=== PATIENT | female | born 1965 | race Caucasian/White ===

== ENCOUNTER 2020-08-22 07:38 | Outpatient (CLI) | payer MEDICARE, MEDICAID, SELFPAY ==
--- NOTE | 2020-08-22 06:00 | DI.RAD_ITS ---
EXAM: XR PAIN CLINIC LUMBAR SP 2V CLINICAL HISTORY: Dx:Lumbar Radiculopathy TECHNIQUE: 2D and realtime digital imaging was performed. CONTRAST MATERIAL: None. COMPARISON: No exams were available for comparison FINDINGS: Fluoroscopy was provided for Dr. Simon during the performance of a L5-S1 interlaminar epidural steroid injection. Please refer to the procedure report for complete details. Fluoro time: 55.6 second Cumulative dose: 31.7 mGy IMPRESSION:
[2020-08-22 07:54] VITALS: BP 121/81; PULSE 84; RESP 17; TEMP 36.8; O2SAT 97
[2020-08-22 08:49] VITALS: BP 120/70; PULSE 110; RESP 18; O2SAT 94
--- NOTE | 2020-08-22 08:52 | PDOC.PAIN ---
Pain Clinic Procedure Note Procedure Note Procedure Note: PROCEDURE NOTE CAUDAL EPIDURAL STEROID INJECTION Date of Service: August 22, 2020 Patient: ADRIAN MELENDREZ Provider: Ana Simon DO, MPH ADRIAN MELENDREZ has been referred to the [facility] for caudal epidural steroid injection. Pre-operative diagnosis: Lumbosacral radiculopathy Post-operative diagnosis: Same COMMENTS: She was evaluated in our clinic on 06/11/20 by Ismaellester. She did have an MRI of the lumbar spine on 05/05/20. She does have right L5 compression and symptoms consistent with this finding. She does have a history of an L4-L5 fusion in 2014. She has had LESIs with Dr. Maldonado in the past with good results. Her last LESI was in 05/2019. ADRIAN was interviewed and the medical record was reviewed. There were no medical, pharmacologic, radiographic or other structural contraindications to attempting fluoroscopically guided epidural steroid injection. Risks and expected side effects as well as potential benefit of the procedure were reviewed with Ms MELENDREZ, and her voiced concerns were addressed. The printed consent form was signed and witnessed. Standard time-out procedure was performed. Ms MELENDREZ was placed in the prone position on the fluoroscopy table and automated blood pressure cuff and pulse oximeter applied. The skin entry point for entering/approaching the epidural space by a caudal approach through the sacral hiatus ed identified with surgical skin marking. Following thorough chlorhexidine preparation x 2 of the skin and draping and 1% lidocaine infiltration of the skin entry point and subcutaneous tissues, a 17 gauge Touhy needle was placed under fluoroscopic guidance into the epidural space. Needle tip placement and depth were aided and confirmed by fluoroscopy in the lateral and AP position. There was no paresthesia or return of blood or CSF through the needle. 1 cc of Omnipaque 240 was injected with clear epidural spread confirmed with fluoroscopy. An Arrow 17G radio-opaque epidural catheter was advanced into the epidural space to the L5-S1 and 2 cc of Omnipaque 240 was injected with clear epidural spread. 80 mg of Depomedrol followed by 1 cc of 1% Lidocaine was injected. There was no unusual discomfort expressed by ADRIAN . The needle and catheter were then flushed with 2 cc of 1% Lidocaine and they were removed without difficulty. (48 cc of Omnipaque was wasted) Ms MELENDREZ's vital signs were stable throughout the procedure and were as recorded in the docflowsheet by the nursing staff. If given, dosages of intravenous drugs for anxiolysis and analgesia were documented in MAR. Follow up plans and appointments were discussed with Ms MELENDREZ. Post procedure instruction was given as documented in nursing documentation and having met discharge criteria, she was discharged from the [facility]. COMMENTS: No apparent complications. This procedure can be completed up to 3 times per 12 months if it is found to be helpful.. Follow-up with our office as needed. I personally completed the entire procedure. ANA SIMON DO, MPH Facility Administrator of Anesthesiology/[facility]ly [facility] [employer] [facility] Epitaxial Reactor Operator, Pain Medicine Fellowship at [facility] Mural Painter, Functional Holiness Program at [facility] [employer]BP[employer]R - Subspecialty board certification in Pain Medicine
[2020-08-22] MEDS: methylPREDNISolone ACETATE 80 MG/ML VIAL IJ (08:57)
[2020-08-22] MEDS: Omnipaque 240 MG/ML 50 ML BTL IJ (08:58)
== END 2020-08-22 07:58 ==
PROVIDERS: PCP Internal Medicine; Visit Provider Preventive Medicine Occupational Medicine
DX: M54.17 Radiculopathy, lumbosacral region (principal)
CPT/HCPCS: 62323; 72100; J1040; Q9967

== ENCOUNTER 2020-09-13 11:37 | Outpatient (REF) | payer MEDICARE, MEDICAID, SELFPAY ==
[2020-09-15 11:33] LABS: 2-Hydroxy Ethyl Flurazepam Not Detected ng/mL (Cutoff: 10); 6-monoacetylmorphine Not Detected ng/mL (Cutoff: 25); Alpha-Hydroxy Midazolam Not Detected ng/mL (Cutoff: 10); Alpha-Hydroxy Triazolam Not Detected ng/mL (Cutoff: 10); Alpha-Hydroxyalprazolam Not Detected ng/mL (Cutoff: 10); Alpha-OH-alprazolam Glucuronid Not Detected ng/mL (Cutoff: 50); Alprazolam Not Detected ng/mL (Cutoff: 10); Amphetamines Negative ng/mL (Cutoff: 500); Barbiturates Negative ng/mL (Cutoff: 200); Buprenorphine Not Detected ng/mL (Cutoff: 5); Chlordiazepoxide Not Detected ng/mL (Cutoff: 10); Clobazam Not Detected ng/mL (Cutoff: 10); Clonazepam Not Detected ng/mL (Cutoff: 10); Cocaine Negative ng/mL (Cutoff: 150); Codeine Not Detected ng/mL (Cutoff: 25); Comment Normal; Creatinine, U 75.5 mg/dL; Diazepam Not Detected ng/mL (Cutoff: 10); Dihydrocodeine Not Detected ng/mL (Cutoff: 25); EDDP Not Detected ng/mL (Cutoff: 25); Fentanyl Not Detected ng/mL (Cutoff: 2); Flurazepam Not Detected ng/mL (Cutoff: 10); Hydrocodone Not Detected ng/mL (Cutoff: 25); Hydromorphone Not Detected ng/mL (Cutoff: 25); Hydromorphone-3-beta-glucuroni Not Detected ng/mL (Cutoff: 100); Lorazepam Not Detected ng/mL (Cutoff: 10); Lorazepam Glucuronide Not Detected ng/mL (Cutoff: 50); Meperidine Not Detected ng/mL (Cutoff: 25); Methadone Not Detected ng/mL (Cutoff: 25); Midazolam Not Detected ng/mL (Cutoff: 10); Morphine Not Detected ng/mL (Cutoff: 25); N-Desmethylclobazam Not Detected ng/mL (Cutoff: 200); N-desmethyltapentadol Not Detected ng/mL (Cutoff: 50); Naloxone Not Detected ng/mL (Cutoff: 25); Norbuprenorphine Not Detected ng/mL (Cutoff: 5); Norfentanyl Not Detected ng/mL (Cutoff: 2); Norhydrocodone Not Detected ng/mL (Cutoff: 25); Normeperidine Not Detected ng/mL (Cutoff: 25); Noroxycodone Not Detected ng/mL (Cutoff: 25); Noroxymorphone Not Detected ng/mL (Cutoff: 25); O-desmethyltramadol Not Detected ng/mL (Cutoff: 25); Oxazepam Glucuronide Not Detected ng/mL (Cutoff: 50); Phencyclidine Negative ng/mL (Cutoff: 25); Prazepam Not Detected ng/mL (Cutoff: 10); Propoxyphene Not Detected ng/mL (Cutoff: 25); Specific Gravity 1.018; Tapentadol Not Detected ng/mL (Cutoff: 25); Temazepam Not Detected ng/mL (Cutoff: 10); Temazepam Glucuronide Not Detected ng/mL (Cutoff: 50); Tetrahydrocannabinol Negative ng/mL (Cutoff: 50); Tramadol Not Detected ng/mL (Cutoff: 25); Triazolam Not Detected ng/mL (Cutoff: 10); Zolpidem Phenyl-4-Carboxy acid Not Detected ng/mL (Cutoff: 10); pH 5.9
== END 2020-09-13 11:57 ==
LOC: LBN 11:37
PROVIDERS: PCP Internal Medicine; Visit Provider Nurse Practitioner Family
DX: G35 Multiple sclerosis (principal); M54.17 Radiculopathy, lumbosacral region; Z79.899 Other long term (current) drug therapy
CPT/HCPCS: 80307; 80347; 80364

== ENCOUNTER 2021-01-03 09:51 | Outpatient (CLI) | payer MEDICARE, MEDICAID, SELFPAY ==
--- NOTE | 2021-01-03 06:00 | DI.RAD_ITS ---
Exam(s) XR PAIN CLINIC LUMBAR SP 2V EXAM: XR PAIN CLINIC LUMBAR SP 2V CLINICAL HISTORY: Dx: Lumbar Radiculopathy TECHNIQUE: 2D and realtime digital imaging was performed. Radiologist not present. CONTRAST MATERIAL: None. COMPARISON: No exams were available for comparison FINDINGS: Fluoroscopy was provided for pain management therapy. Please see procedure report for details. No submitted images Please refer to procedure report or details. Cumulative dose: Ka,r=51.33 mGy IMPRESSION: RADIATION DOSE DELIVERED:
[2021-01-03 10:35] VITALS: BP 115/83; PULSE 74; RESP 18; TEMP 36.6; O2SAT 98
[2021-01-03] MEDS: Omnipaque 240 MG/ML 50 ML BTL IJ (11:20)
[2021-01-03] MEDS: methylPREDNISolone ACETATE 80 MG/ML VIAL IJ (11:20)
[2021-01-03 11:26] VITALS: BP 158/92; PULSE 81; RESP 14; O2SAT 96
--- NOTE | 2021-01-17 09:09 | PDOC.PAIN ---
Pain Clinic Procedure Note Procedure Note Procedure Note: Date of service: January 03, 2021 CAUDAL EPIDURAL STEROID WITH CATHETER INJECTION PROCEDURE NOTE COMMENTS: Patient recently seen in our office by Ismaellester. Dx: Lumbosacral radiculopathy ADRIAN MELENDREZ has been referred to the [facility] for caudal epidural steroid injection. Patient was greeted by the nurse who verified patients name and . Patient was then taken to the fluoroscopy suite. Patient was interviewed and the medical record reviewed. There were no medical, pharmacologic, radiographic, or other structural contraindications to attempting fluoroscopically guided lumbar epidural steroid injection. Risks and expected side effects as well as potential benefits of the procedure were reviewed and voiced concerns addressed. The patient consent form was signed and witnessed. Standard time-out procedure was performed. Patient was placed in the prone position on the fluoroscopy table and automated blood pressure cuff and pulse oximeter applied. The skin entry point for entering/approaching the epidural space at the sacral hiatus and marked. Following thorough chlorhexadine preparation of the skin and draping and 1% lidocaine infiltration of the skin entry point and subcutaneous tissues, a 17 gauge Touhy needle was placed under fluoroscopic guidance and with loss of resistance technique into the epidural space. Needle tip placement and depth were aided and confirmed by fluoroscopy. There was no paresthesia or return of blood or CSF through the needle. An Arrow cath was thread to the L5-S1 level and 1 cc's of Omnipaque 240 was injected with clear epidural spread confirmed with fluoroscopy. 80mg depomedrol was injected. There was not any unusual discomfort expressed. Vital signs were stable throughout the procedure and were as recorded in nursing records. Follow up plans and appointments were discussed.Post procedure instruction was given as documented in nursing records and having met discharge criteria and was discharged from the [facility]. COMMENTS: She did well with the procedure Derek Simon DO, MPH Pain Management
== END 2021-01-03 09:52 | disposition home or self-care (01) ==
LOC: PC 09:52
PROVIDERS: PCP Internal Medicine; Visit Provider Preventive Medicine Occupational Medicine
DX: M54.17 Radiculopathy, lumbosacral region (principal)
CPT/HCPCS: 62323; 72100; J1040; Q9967

== ENCOUNTER 2021-04-04 11:03 | Outpatient (CLI) | payer MEDICARE, MEDICAID, SELFPAY ==
--- NOTE | 2021-04-04 06:00 | DI.RAD_ITS ---
Exam(s) XR PAIN CLINIC LUMBAR SP 2V EXAM: XR PAIN CLINIC LUMBAR SP 2V CLINICAL HISTORY: Dx: Lumbar Radiculopathy TECHNIQUE: 2D and realtime digital imaging was performed. Radiologist not present. CONTRAST MATERIAL: None. COMPARISON: No exams were available for comparison FINDINGS: Fluoroscopy was provided for pain management therapy. Please refer to procedure report or details. Procedure was caudal epidural steroid injection Cumulative dose: Ka,r=26.2 mGy IMPRESSION: RADIATION DOSE DELIVERED:
[2021-04-04 11:16] VITALS: BP 115/60; PULSE 85; RESP 18; TEMP 36.7; O2SAT 99
--- NOTE | 2021-04-04 11:53 | PDOC.PAIN ---
Pain Clinic Procedure Note Procedure Note Procedure Note: CAUDAL EPIDURAL STEROID WITH CATHETER INJECTION PROCEDURE NOTE COMMENTS: Pre-operative pain VAS = 7/10 Dx: Lumbosacral radiculopathy ADRIAN MELENDREZ has been referred to the [facility] for lumbar epidural steroid injection. Patient was greeted by the nurse who verified patients name and . Patient was then taken to the fluoroscopy suite. Patient was interviewed and the medical record reviewed. There were no medical, pharmacologic, radiographic, or other structural contraindications to attempting fluoroscopically guided lumbar epidural steroid injection. Risks and expected side effects as well as potential benefits of the procedure were reviewed and voiced concerns addressed. The patient consent form was signed and witnessed. Standard time-out procedure was performed. Patient was placed in the prone position on the fluoroscopy table and automated blood pressure cuff and pulse oximeter applied. The skin entry point for entering/approaching the epidural space by at the sacral hiatus and marked. Following thorough chlorhexadine preparation of the skin and draping and 1% lidocaine infiltration of the skin entry point and subcutaneous tissues, a 17 gauge Touhy needle was placed under fluoroscopic guidance and with loss of resistance technique into the epidural space. Needle tip placement and depth were aided and confirmed by fluoroscopy. There was no paresthesia or return of blood or CSF through the needle. An Arrow cath was thread to the left L5 vertebral body area and 1 cc's of Omnipaque 240 was injected with clear epidural spread confirmed with fluoroscopy. 80mg depomedrol was injected. There was not any unusual discomfort expressed. Vital signs were stable throughout the procedure and were as recorded in nursing records. Follow up plans and appointments were discussed.Post procedure instruction was given as documented in nursing records and having met discharge criteria and was discharged from the [facility]. COMMENTS: Post-operative pain VAS = 2/10 Derek Simon DO, MPH Pain Management
[2021-04-04 11:55] VITALS: BP 112/62; PULSE 83; RESP 14; O2SAT 98
[2021-04-04] MEDS: Omnipaque 240 MG/ML 50 ML BTL IJ (12:01)
[2021-04-04] MEDS: methylPREDNISolone ACETATE 80 MG/ML VIAL IJ (12:01)
== END 2021-04-04 11:04 | disposition home or self-care (01) ==
LOC: PC 11:04
PROVIDERS: PCP Internal Medicine; Visit Provider Preventive Medicine Occupational Medicine
DX: M54.17 Radiculopathy, lumbosacral region (principal)
CPT/HCPCS: 62323; 72100; J1040; Q9967

== ENCOUNTER 2021-11-21 12:47 | Outpatient (CLI) | payer MEDICARE, MEDICAID, SELFPAY ==
--- NOTE | 2021-11-21 06:00 | DI.RAD_ITS ---
Exam(s) XR PAIN CLINIC LUMBAR SP 2V EXAM: XR PAIN CLINIC LUMBAR SP 2V CLINICAL HISTORY: Dx: Lumbar Radiculopathy TECHNIQUE: 2D and realtime digital imaging was performed. CONTRAST MATERIAL: Refer to procedure report. COMPARISON: No exams were available for comparison FINDINGS: Fluoroscopy was provided for Dr. Simon during the performance of a lumbar epidural steroid injection. Please refer to the procedure report for complete details. Ka,r=82.22 mGy IMPRESSION:
[2021-11-21 13:05] VITALS: BP 140/79; PULSE 93; RESP 20; TEMP 36.6; O2SAT 95
--- NOTE | 2021-11-21 13:52 | PDOC.PAIN ---
Pain Clinic Procedure Note Procedure Note Procedure Note: CAUDAL EPIDURAL STEROID WITH CATHETER INJECTION PROCEDURE NOTE COMMENTS: She has had this procedure numerous times. She typically gets 6-9 months of relief to her low back and leg pain with this procedure. She has history of lumbar fusion. Her pre-procedure pain VAS was 10/10. Dx: Lumbosacral radiculopathy Dennise Funez has been referred to the [facility] for lumbar epidural steroid injection. Patient was greeted by the nurse who verified the patient?s name and .? Patient was then taken to the fluoroscopy suite. The patient was interviewed and the medical record was reviewed.? There were no medical, pharmacologic, radiographic, or other structural contraindications to attempting fluoroscopically guided caudal epidural steroid injection. Risks and expected side effects as well as potential benefits of the procedure were reviewed and voiced concerns addressed.? The patient consent form was signed.? Standard time-out procedure was performed. The patient was placed in the prone position on the fluoroscopy table and automated blood pressure cuff, pulse oximeter, and 3 lead EKG was applied.? The skin entry point for entering/approaching the sacral hiatus was marked.? Following thorough chlorhexadine preparation of the skin and draping and 1% lidocaine infiltration of the skin entry point and subcutaneous tissues, a 17 gauge Touhy needle was placed under fluoroscopic guidance through the sacral hiatus.? Needle tip placement and depth were aided and confirmed by fluoroscopy. There was no paresthesia or return of blood or CSF through the needle. A 19G Arrow spinal catheter was threaded to the L5 height and 1 cc's of Omnipaque 240 was injected with clear epidural spread confirmed with fluoroscopy.? Aspiration was performed with no resulting blood or clear fluid. One cc of depomedrol (80 mg/cc) was injected.? This was followed by 2 cc of 1% Lidocaine to flush the catheter.?There was not any unusual discomfort expressed.? The needle and catheter were removed together without difficulty. Vital signs were stable throughout the procedure and were as recorded in nursing records.? Follow up plans and appointments were discussed.? Post procedure instruction was given as documented in nursing records and having met discharge criteria and was discharged from the [facility]. Post-procedure pain VAS 5/10. Derek Simon DO, MPH [facility]-Pain Management [facility] for [facility]
[2021-11-21 13:54] VITALS: BP 145/93; PULSE 92; RESP 20; O2SAT 96
[2021-11-21] MEDS: Omnipaque 240 MG/ML 50 ML BTL IJ (13:54)
[2021-11-21] MEDS: methylPREDNISolone ACETATE 80 MG/ML VIAL IJ (13:54)
== END 2021-11-21 12:48 | disposition home or self-care (01) ==
LOC: PC 12:47
PROVIDERS: PCP Internal Medicine; Visit Provider Preventive Medicine Occupational Medicine
DX: M54.17 Radiculopathy, lumbosacral region (principal)
CPT/HCPCS: 62323; 72100; J1040; Q9967

== ENCOUNTER 2022-03-06 07:56 | Outpatient (CLI) | payer MEDICARE, MEDICAID, SELFPAY ==
--- NOTE | 2022-03-06 06:00 | DI.RAD_ITS ---
Exam(s) XR PAIN CLINIC LUMBAR SP 2V EXAM: XR PAIN CLINIC LUMBAR SP 2V CLINICAL HISTORY: Dx: Lumbar Radiculopathy TECHNIQUE: 2D and realtime digital imaging was performed. Radiologist not present. CONTRAST MATERIAL: None. COMPARISON: No exams were available for comparison FINDINGS: Fluoroscopy was provided for pain management therapy. Please refer to procedure report or details. Cumulative dose: Ka,r=26.68 mGy IMPRESSION: RADIATION DOSE DELIVERED:
[2022-03-06 08:08] VITALS: BP 140/87; PULSE 79; RESP 20; TEMP 36.7; O2SAT 95
[2022-03-06 08:36] VITALS: BP 144/86; PULSE 73; RESP 16; O2SAT 97
[2022-03-06] MEDS: Omnipaque 240 MG/ML 50 ML BTL IJ (08:37)
[2022-03-06] MEDS: methylPREDNISolone ACETATE 80 MG/ML VIAL IJ (08:37)
--- NOTE | 2022-03-06 09:18 | PDOC.PAIN ---
Pain Clinic Procedure Note Procedure Note Procedure Note: CAUDAL EPIDURAL STEROID WITH CATHETER INJECTION PROCEDURE NOTE COMMENTS: She has done very well with this procedure in the past. It has allowed her to stay active. Dennise Funez has been referred to the [facility] for lumbar epidural steroid injection. Patient was greeted by the nurse who verified the patient?s name and .? Patient was then taken to the fluoroscopy suite. The patient was interviewed and the medical record was reviewed.? There were no medical, pharmacologic, radiographic, or other structural contraindications to attempting fluoroscopically guided caudal epidural steroid injection. Risks and expected side effects as well as potential benefits of the procedure were reviewed and voiced concerns addressed.? The patient consent form was signed.? Standard time-out procedure was performed. The patient was placed in the prone position on the fluoroscopy table and automated blood pressure cuff, pulse oximeter, and 3 lead EKG was applied.? The skin entry point for entering/approaching the sacral hiatus was marked.? Following thorough chlorhexadine preparation of the skin and draping and 1% lidocaine infiltration of the skin entry point and subcutaneous tissues, a 17 gauge Touhy needle was placed under fluoroscopic guidance through the sacral hiatus.? Needle tip placement and depth were aided and confirmed by fluoroscopy. There was no paresthesia or return of blood or CSF through the needle. A 19G Arrow spinal catheter was threaded to the [] height and 1 cc's of Omnipaque 240 was injected with clear epidural spread confirmed with fluoroscopy.? Aspiration was performed with no resulting blood or clear fluid. One cc of depomedrol (80 mg/cc) was injected.? This was followed by 2 cc of 1% Lidocaine to flush the catheter.?There was not any unusual discomfort expressed.? The needle and catheter were removed together without difficulty. Vital signs were stable throughout the procedure and were as recorded in nursing records.? Follow up plans and appointments were discussed.? Post procedure instruction was given as documented in nursing records and having met discharge criteria and was discharged from the [facility].
== END 2022-03-06 07:57 | disposition home or self-care (01) ==
LOC: PC 07:57
PROVIDERS: PCP Internal Medicine; Visit Provider Preventive Medicine Occupational Medicine
DX: M54.17 Radiculopathy, lumbosacral region (principal)
CPT/HCPCS: 62323; 72100; J1040; Q9967